=== PATIENT | female | born 1975 | race Caucasian/White ===

== ENCOUNTER 2020-06-21 10:42 | Emergency (ER) | payer OTHER, SELFPAY ==
[2020-06-21 10:55] VITALS: BP 131/85; PULSE 82; RESP 18; TEMP 37; O2SAT 98
--- NOTE | 2020-06-21 11:09 | ED_ITS ---
HPI - Extremity Injury (Upper) General Chief Complaint: Extremity Injury, Upper Stated Complaint: left wrist pain Source: patient and RN notes reviewed Limitations: no limitations History of Present Illness HPI narrative: The right-handed patient, a smoker/occ drinker, who works at [employer] this iday season. Complains of left wrist pain. Patient complains of about a shorter, 1 day history of left wrist pain that is mild, worse with m otion, better at rest, somewhat worse on the ulnar aspect. No palmari/abdominal discomfort, injury, redness, swelling, known injury/overuse. Related Data Home Medications Medication Instructions Recorded Confirmed Zyzal 06/21/20 Allergies Allergy/AdvReac Type Severity Reaction Status Date / Time No Known Allergies Allergy Verified 06/21/20 11:00 Review of Systems Review of Systems: Narrative: General/Constitutional: No weight loss,fever Eyes: N0: Redness,discharge Ears/Nose/Throat: No: Epistaxis,ear discharge Respiratory: Denies: Hemoptysis Gastrointestinal: No Vomiting, Bleeding-rectal Skin: No Lumps, eruption Neurologic: No Focal Weakness,Sz Hematologic: Denies: Petechiae/Purpura Psychiatric: No: Suicida ideationl All Other Systems: Reviewed and Negative PMFSH Comments At time of signature, agree with nursing past medical, surgical, social and family history. There is no relevant family history pertinent to the presenting complaint Exam Narrative: Exam Narrative: General Appearance: Well appearing, conjunctiva clear Ears: External ear normal, Mouth/Throat: Normal appearing, Normal lips Supple Respiratory: Airway patent, No respiratory distress MS-wrist: Normal strength (mostly intact, limited flexion/extension by pain), Tenderness (ulnar/laterally, with mild decreased ROM), Scant swelling (laterally), Other (no anterior drawer, no collateral laxity, negative Tinel's, negative Josue's Skin: Warm, Dry, Normal color Neurological: A&O x3, normal affect Course Vital Signs Vital signs: Vital Signs Temperature 98.6 F 06/21/20 10:55 Pulse Rate 82 06/21/20 10:55 Respiratory Rate 18 06/21/20 10:55 Blood Pressure 131/85 06/21/20 10:55 Pulse Oximetry 98 06/21/20 10:55 Temperature 98.6 F 06/21/20 10:55 Pulse Rate 82 06/21/20 10:55 Respiratory Rate 18 06/21/20 10:55 Blood Pressure 131/85 06/21/20 10:55 Pulse Oximetry 98 06/21/20 10:55 Discharge Plan Discharge Clinical Impression: Left wrist tendonitis Patient Disposition: Home, Self-Care Condition: Stable Instructions: Tendinitis (ED) Prescriptions: New acetaminophen-codeine 300-30 mg tablet 1 tablet PO HS PRN (Reason: pain) Qty: 10 RF: 0 prednisone 20 mg tablet 60 mg PO DAILY Qty: 9 RF: 0 tramadol 50 mg tablet 50 mg PO TID PRN (Reason: pain) Qty: 15 RF: 1 No Action Zyzal RF: 0 Follow-up/Referrals: Harms,Anthony Bailey M.D. [Primary Care Provider] -
== END 2020-06-21 11:16 | disposition home or self-care (01) ==
PROVIDERS: Emergency Provider Emergency Medicine; PCP Family Medicine
DX: M77.9 Enthesopathy, unspecified (principal)
CPT/HCPCS: 99213; G0463

== ENCOUNTER 2021-06-12 12:53 | Emergency (ER) | payer OTHER, SELFPAY ==
--- NOTE | 2021-06-12 12:56 | ED.BACK ---
HPI - Back Pain/Injury General Chief Complaint: Back Pain/Injury Stated Complaint: Back pain Time Seen by Provider: 06/12/21 12:56 Source: patient and RN notes reviewed History of Present Illness HPI Narrative: Patient is a 45-year-old female who presents the urgent care with complaints of right-sided low back pain for the last 5 to 6 days. Patient states it is tight and she feels like she is having spasms . Patient denies of any known injury or fall. States that she has been using ice, heat, Aleve and muscle rubs without much improvement. Patient denies of any urinary symptoms. Denies of fever. No other acute complaints. No acute distress noted. Patient on the plan of care. Some parts of this dictation were generated by voice recognition software and may contain typographical and/or grammatical inaccuracies. Related Data Home Medications Medication Instructions Recorded Confirmed levocetirizine [Xyzal] 5 mg PO DAILY 06/12/21 06/12/21 Allergies Allergy/AdvReac Type Severity Reaction Status Date / Time No Known Allergies Allergy Verified 06/21/20 11:00 Review of Systems Review of Systems: CONSTITUTIONAL: Denies fever, chills, or sweats. EYES: Denies visual changes, redness, or discharge. ENT: Denies rhinorrhea, congestion, sore throat, or otalgia. CARDIOVASCULAR: Denies chest pain, palpitations, or edema. RESPIRATORY: Denies cough or dyspnea. GASTROINTESTINAL: Denies abdominal pain, nausea, vomiting, or diarrhea. GENITOURINARY: Denies dysuria or hematuria. SKIN: Denies rash or itching. MUSCULOSKELETAL: Reports of right-sided low back pain NEUROLOGIC: Denies headache, numbness, or weakness. All other systems reviewed are negative, except as documented in HPI. PMFSH Comments At the time of my signature, I reviewed and agree with the nursing past medical, surgical, social, and family history. There is no relevant family history pertinent to the patient complaint. Exam Narrative: GENERAL: This is a well-nourished, well-developed patient, in no apparent distress. HEAD: normocephalic, atraumatic. EYES: PERRL. Sclera clear/white. Vision is grossly intact. EARS: External ears normal NOSE: External nose normal with no obvious nasal discharge, nares without redness, no rhinorrhea. THROAT: Mucous membranes moist NECK: Neck supple CARDIOVASCULAR: Regular rate and rhythm without murmurs, gallops, or rubs. RESPIRATORY: Clear to auscultation. Breath sounds equal bilaterally. No wheezes, rales, or rhonchi. SKIN: warm, intact with no suspicious lesions or rash, good texture and turgor. NEURO: awake, alert, and oriented to person, place and time. There were no obvious focal neurologic abnormalities. EXTREMITIES: No clubbing, cyanosis, or edema. BACK: Moderate right-sided lumbar tenderness with negative SLE Course Vital Signs Vital signs: Vital Signs Temperature 97.6 F 06/12/21 12:58 Pulse Rate 76 06/12/21 12:58 Respiratory Rate 18 06/12/21 12:58 Blood Pressure 138/72 06/12/21 12:58 Pulse Oximetry 99 06/12/21 12:58 Temperature 97.6 F 06/12/21 13:07 Pulse Rate 76 06/12/21 13:07 Respiratory Rate 18 06/12/21 13:07 Blood Pressure 138/72 06/12/21 13:07 Pulse Oximetry 99 06/12/21 13:07 Reviewed MDM - Back Pain/Injury MDM Narrative Medical decision making narrative: Advised patient to complete the steroid regimen as prescribed. Use the Flexeril as needed for muscle spasms. Be aware that Flexeril will make you drowsy and would not advise operating heavy machinery or driving while on the medication. Use the ibuprofen as needed for pain. Do not take the ibuprofen with any other NSAIDs [id number]. May use ice and heat as needed. Avoid any strenuous activity such as pushing, pulling, lifting. Follow-up with your PCP within 2 to 5 days or for worsening symptoms or failure to improve. Differential Diagnosis Differential diagnosis: Likely lumbar radiculopathy, sciatica, strain of lumb
[2021-06-12 12:58] VITALS: BP 138/72; PULSE 76; RESP 18; TEMP 36.4; O2SAT 99
[2021-06-12 13:07] VITALS: BP 138/72; PULSE 76; RESP 18; TEMP 36.4; O2SAT 99
== END 2021-06-12 13:35 | disposition home or self-care (01) ==
PROVIDERS: Emergency Provider Nurse Practitioner Family; PCP Family Medicine
DX: S39.012A Strain of muscle, fascia and tendon of lower back, initial encounter (principal); X58.XXXA Exposure to other specified factors, initial encounter
CPT/HCPCS: 99213; G0463

== ENCOUNTER 2021-07-07 18:03 | Emergency (ER) | payer OTHER, SELFPAY ==
--- NOTE | ~2021-07-07 | XR_ITS ---
EXAMINATION: XR chest 2V DATE: 07/07/2021 18:27 INDICATION: Cough TECHNIQUE: PA and lateral views of the chest are obtained. COMPARISON: None available FINDINGS: There is mild subsegmental atelectasis of the right lung base. There is no pleural effusion or pneumothorax. The cardiomediastinal silhouette is normal. There is mild thoracic spondylosis. IMPRESSION: 1. Mild atelectasis of the right lung base. Reviewed, dictated and finalized at location F. [employer]
--- NOTE | 2021-07-07 18:06 | ED.FEVER ---
HPI - Fever General Chief Complaint: Upper Respiratory Infection Stated Complaint: Fever/Chills Time Seen by Provider: 07/07/21 18:06 Source: patient and RN notes reviewed History of Present Illness HPI Narrative: Patient is a 45-year-old female who presents the urgent care with complaints of fever, chills, body aches and cough. Patient states that her symptoms started last Tuesday and she had a negative COVID test. States that she started to feel better and then woke up last night with extreme body aches at 1030. Patient states she has been taking DayQuil and NyQuil. Denies of any other illness in the home. Patient has had a COVID-vaccine. Denies of any known exposures to COVID or flu. No other acute complaints. No acute distress noted. Patient read the plan of care. Some parts of this dictation were generated by voice recognition software and may contain typographical and/or grammatical inaccuracies. Related Data Allergies Allergy/AdvReac Type Severity Reaction Status Date / Time No Known Allergies Allergy Verified 07/07/21 18:19 Review of Systems Review of Systems: CONSTITUTIONAL: Reports a fever, chills, sweats and fatigue EYES: Denies visual changes, redness, or discharge. ENT: Denies rhinorrhea, congestion, sore throat, or otalgia. CARDIOVASCULAR: Denies chest pain, palpitations, or edema. RESPIRATORY: Reports a cough without dyspnea GASTROINTESTINAL: Denies abdominal pain, nausea, vomiting, or diarrhea. GENITOURINARY: Denies dysuria or hematuria. SKIN: Denies rash or itching. MUSCULOSKELETAL: Denies back pain, joint pain. Reports body aches NEUROLOGIC: Denies headache, numbness, or weakness. All other systems reviewed are negative, except as documented in HPI. PMFSH Comments At the time of my signature, I reviewed and agree with the nursing past medical, surgical, social, and family history. There is no relevant family history pertinent to the patient complaint. Exam Narrative: GENERAL: This is a well-nourished, well-developed patient, in no apparent distress. HEAD: normocephalic, atraumatic. EYES: PERRL. Sclera clear/white. Vision is grossly intact. EARS: External ears normal, auditory canals clear and without drainage, TMs normal without perforation. Hearing grossly intact. NOSE: External nose normal with no obvious nasal discharge, nares without redness, no rhinorrhea. THROAT: Mucous membranes moist, posterior pharynx clear. Moderate postnasal drainage NECK: Neck supple CARDIOVASCULAR: Regular rate and rhythm without murmurs, gallops, or rubs. RESPIRATORY: Slight crackles throughout mildly diminished to right lower SKIN: warm, intact with no suspicious lesions or rash, good texture and turgor. NEURO: awake, alert, and oriented to person, place and time. There were no obvious focal neurologic abnormalities. EXTREMITIES: No clubbing, cyanosis, or edema. Course Course Level of Care: Express Care Visit Vital Signs Vital signs: Vital Signs Temperature 101.6 F H 07/07/21 18:14 Pulse Rate 110 H 07/07/21 18:14 Respiratory Rate 24 H 07/07/21 18:14 Blood Pressure 120/66 07/07/21 18:14 Pulse Oximetry 96 07/07/21 18:14 Temperature 101.6 F H 07/07/21 18:14 Pulse Rate 110 H 07/07/21 18:14 Respiratory Rate 24 H 07/07/21 18:14 Blood Pressure 120/66 07/07/21 18:14 Pulse Oximetry 96 07/07/21 18:14 reviewed MDM - Fever MDM Narrative Medical decision making narrative: Reviewed x-ray results with the patient. She is aware that x-ray shows possibility of right lower pneumonia. Advised patient complete the oral antibiotic regimen as prescribed. Be sure to eat and drink with the medication. Complete the steroid regimen as prescribed. Use the inhaler as needed for shortness of breath or cough. Use Tylenol/ibuprofen as needed for body aches, fever and chills. If you develop any increase in symptoms associated with difficulty breathing or chest pain?go to the emergency room. Follow-up with jonathan
[2021-07-07 18:14] VITALS: BP 120/66; PULSE 110; RESP 24; TEMP 38.7; O2SAT 96
== END 2021-07-07 18:52 | disposition home or self-care (01) ==
PROVIDERS: Emergency Provider Nurse Practitioner Family; PCP Family Medicine
DX: J18.1 Lobar pneumonia, unspecified organism (principal)
CPT/HCPCS: 71046; 99213; G0463

== ENCOUNTER 2023-12-25 08:31 | Emergency (ER) | payer OTHER, SELFPAY ==
[2023-12-25 08:39] VITALS: BP 120/87; PULSE 72; RESP 18; TEMP 36; O2SAT 100
--- NOTE | 2023-12-25 08:57 | ED.EXTPRO ---
HPI - Extremity Problem General Chief complaint: Extremity Problem,Nontraumatic Stated complaint: left hand swollen/painful Time Seen by Provider: 12/25/23 08:57 Source: patient, RN notes reviewed and old records reviewed Mode of arrival: ambulatory Limitations: no limitations History of Present Illness HPI Narrative: Patient presents to [facility] with complaints of left hand pain and swelling for approximately 1 week. She denies any injury or trauma. She reports that she initially noted that she had redness and swelling to 1 of her knuckles, it eventually extended to the entire hand. She does report that she has had joint problems in the past. States that she does have a rheumatology appointment next month. Has never been to rheumatology before. She denies any fever, chills, sweats. She states that symptoms are worsening. Has been using Aleve intermittently with poor relief. Related Data Home Medications Medication Instructions Recorded Confirmed escitalopram oxalate 10 mg tablet 10 mg PO DAILY 12/25/23 12/25/23 meloxicam 7.5 mg tablet 7.5 mg PO DAILY 12/25/23 12/25/23 varenicline 1 mg tablet 1 mg PO DAILY 12/25/23 12/25/23 Allergies Allergy/AdvReac Type Severity Reaction Status Date / Time No Known Allergies Allergy Verified 07/07/21 18:19 Review of Systems Review of Systems: All systems reviewed & are unremarkable except as noted in HPI and below Constitutional: Constitutional: Reports no additional constitutional complaints ENT: Reports system reviewed and no additional complaints, except as documented Cardiovascular: Cardiovascular: Reports no additional cardiovascular complaints Respiratory: Respiratory: Reports no additional respiratory complaints Gastrointestinal: Gastrointestinal: Reports no additional gastrointestinal complaints Musculoskeletal: Comments: Left hand pain and swelling, difficulty making a fist. Retains full range of motion to the affected wrist Integumentary/Breasts: Skin/Breast: Reports change in pigmentation Comments: left hand with reddening and warmth to the skin PMFSH Comments At the time of my signature, I reviewed and agree with the nursing past medical, surgical, social, and family history. There is no relevant family history pertinent to the patient complaint. Exam Const: General: cooperative, no acute distress, alert and awake Orientation/consciousness: oriented to person, oriented to place and oriented to time HENMT: Head: normal to inspection Resp: Effort & Inspection: normal respiratory effort and able to speak in complete sentences Auscultation: clear to auscultation bilaterally, no crackles, no rales, no rhonchi and no wheezes Cardio: Palpation: normal PMI Rate: regular rate Rhythm: regular rhythm Heart sounds: S1 normal heart sound present and S2 normal heart sound present Skin: Full body images: 1. erythema Neuro: General: oriented to person, oriented to place and oriented to time Cranial nerves: Yes CN's II-XII intact bilaterally Extrem: Left upper extremity: edema (left hand) Hand/finger images: 1. mild swelling Psych: Appearance: grossly normal Thought process: Normal thought process present Insight: Good insight present (Psych) Judgement: Good judgement present (Psych) Course Course Level of Care: Express Care Visit Vital Signs Vital signs: Vital Signs Temperature 96.8 F L 12/25/23 08:39 Pulse Rate 72 12/25/23 08:39 Respiratory Rate 18 12/25/23 08:39 Blood Pressure 120/87 12/25/23 08:39 Pulse Oximetry 100 12/25/23 08:39 Oxygen Delivery Room Air 12/25/23 08:39 Temperature 96.8 F L 12/25/23 08:39 Pulse Rate 72 12/25/23 08:39 Respiratory Rate 18 12/25/23 08:39 Blood Pressure 120/87 12/25/23 08:39 Pulse Oximetry 100 12/25/23 08:39 Oxygen Delivery Room Air 12/25/23 08:39 Reviewed MDM - Extremity (Nontraumatic) MDM Narrative Medical decision making narra
== END 2023-12-25 09:12 | disposition home or self-care (01) ==
PROVIDERS: Emergency Provider Nurse Practitioner Family; PCP Hospitalist
DX: L03.114 Cellulitis of left upper limb (principal)
CPT/HCPCS: 99213; G0463

== ENCOUNTER 2024-04-07 10:57 | Emergency (ER) | payer OTHER, SELFPAY ==
[2024-04-07 11:02] VITALS: BP 127/81; PULSE 67; RESP 16; TEMP 36.6; O2SAT 100
[2024-04-07 11:06] VITALS: BP 127/81; PULSE 67; RESP 16; TEMP 36.6; O2SAT 100
--- NOTE | 2024-04-07 11:07 | ED.LOWEXIN ---
HPI - Extremity Injury (Lower) General Chief Complaint: Extremity Injury, Lower Stated Complaint: Right Foot Swelling Source: patient Mode of arrival: ambulatory Limitations: no limitations History of Present Illness HPI Narrative: 48 y/o female with hx RA presented for c/o right foot swelling x2 days. States she started with pain in the foot prior to the swelling, now reports foot pain only with walking. Swelling extends from foot to calf. Denies calf pain. Denies redness, warmth n/v/d/f/c. Denies chest pain or sob. Smokes 1/2 ppd, on chantix. Related Data Home Medications Medication Instructions Recorded Confirmed escitalopram oxalate 10 mg tablet 10 mg PO DAILY 12/25/23 12/25/23 varenicline 1 mg tablet 1 mg PO DAILY 12/25/23 12/25/23 folic acid 1 mg tablet 04/07/24 methotrexate sodium 2.5 mg tablet mg 04/07/24 Allergies Allergy/AdvReac Type Severity Reaction Status Date / Time No Known Allergies Allergy Verified 04/07/24 11:04 Review of Systems Review of Systems: CONSTITUTIONAL: Denies body aches, fever, chills CARDIOVASCULAR: Denies chest pain, palpitations, or edema. RESPIRATORY: Denies cough or dyspnea. SKIN: Denies rash, itching, or wounds. MUSCULOSKELETAL: reports RLE swelling Denies back pain, joint pain, or myalgia. NEUROLOGIC: Denies headache, numbness, tingling, or weakness. All systems reviewed & are unremarkable except as noted in HPI and below PMFSH Comments At time of signature, I have reviewed and agree with nursing past medical, surgical, social and family history unless otherwise noted. Please see nursing chart for further information. There is no relevant family history pertinent to the presenting complaint Exam Narrative: GENERAL: Well-appearing CHEST: Speaks in full sentences. No respiratory distress. HEART: Regular rate and rhythm. Normal and equal peripheral pulses. EXTREMITIES: Right foot swelling extending to distal calf area. No warmth or erythema. RLE has normal strength and sensation, normal range of motion at knee and ankle. Neg Homans sign. No ecchymosis, No point tenderness. No open wounds, or obvious deformity; alignment normal, pulse palpable and equal bilaterally, skin warm, dry, pink. Capillary refill less than 3 seconds. SKIN: Warm, dry, no rash. NEURO: Alert and oriented x3. Course Course Emergency Course: Patient is aware of diagnosis, understands and agrees to treatment plan. Anticipatory guidance given. Patient agrees to follow-up as directed and is aware of reasons to seek care at the emergency department. Portions of this record may have been created with voice recognition software Level of Care: Express Care Visit Vital Signs Vital signs: Vital Signs Temperature 98 F 04/07/24 11:02 Pulse Rate 67 04/07/24 11:02 Respiratory Rate 16 04/07/24 11:02 Blood Pressure 127/81 04/07/24 11:02 Pulse Oximetry 100 04/07/24 11:02 Oxygen Delivery Room Air 04/07/24 11:02 Temperature 98 F 04/07/24 11:06 Pulse Rate 67 04/07/24 11:06 Respiratory Rate 16 04/07/24 11:06 Blood Pressure 127/81 04/07/24 11:06 Pulse Oximetry 100 04/07/24 11:06 Oxygen Delivery Room Air 04/07/24 11:06 Reviewed Transfer Transfered to: [facility] Transportation: Other ( Private vehicle) Transfer rationale: Pt is agreeable to transfer. Requests transfer to [facility] via private vehicle. Risks of transportation reviewed with pt including injury, worsening of condition and . v/u. will be driving pt; Report called to hospital, spoke with Beatriz CARMONA, Dr Marc, accepting physician. Pt is in stable condition at time of transfer. Advised to remain NPO and go directly to the hospital. MDM - Extremity Injury (Lower) MDM Narrative Medical decision making narrative: patient presenting with complaint of unilateral leg swelling. Advised ER transfer. Differential Diagnosis Differential diagnosi
== END 2024-04-07 11:25 | disposition short-term general hospital (02) ==
LOC: EXPBETH 10:59
PROVIDERS: Emergency Provider Nurse Practitioner Family; PCP Hospitalist
DX: R22.41 Localized swelling, mass and lump, right lower limb (principal)
CPT/HCPCS: 99212; G0463